=== PATIENT | female | born 1985 | race Caucasian/White ===

== ENCOUNTER → 2018-01-22 16:24 | Outpatient (CLI) | payer SELFPAY ==
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
== END ==
PROVIDERS: Visit Provider Physician Assistant
DX: J18.9 Pneumonia, unspecified organism (principal); R50.9 Fever, unspecified; R05 Cough; R06.09 Other forms of dyspnea
CPT/HCPCS: 71046

== ENCOUNTER → 2020-07-24 16:39 | Outpatient (CLI) | payer OTHER, SELFPAY | PROVIDERS: PCP Family Medicine; Referring Provider Registered Nurse; Visit Provider Registered Nurse | DX: N76.0 Acute vaginitis (principal) | CPT/HCPCS: 87210 ==

== ENCOUNTER → 2021-01-29 12:21 | Outpatient (CLI) | payer OTHER, SELFPAY ==
[2021-01-29 16:49] LABS: Urine N gonorrhoeae NOT DETECTED
[2021-01-29 17:20] LABS: Urine Chlamydia NOT DETECTED
== END ==
PROVIDERS: PCP Family Medicine; Referring Provider Nurse Practitioner Family; Visit Provider Nurse Practitioner Family
DX: N89.8 Other specified noninflammatory disorders of vagina (principal)
CPT/HCPCS: 87210; 87491; 87591

== ENCOUNTER → 2022-01-20 16:01 | Outpatient (CLI) | payer OTHER, SELFPAY | PROVIDERS: PCP Family Medicine; Visit Provider Student in an Organized Health Care Education/Training Program | DX: N89.8 Other specified noninflammatory disorders of vagina (principal) | CPT/HCPCS: 87086; 87210 ==

== ENCOUNTER 2023-03-25 14:26 | Emergency (ER) | payer OTHER, SELFPAY ==
[2023-03-25 14:29] VITALS: BP 119/57; PULSE 100; RESP 16; TEMP 36.6; O2SAT 97; BMI 25.8
--- NOTE | 2023-03-25 14:38 | DI.RAD.S_ITS ---
PROCEDURE: XR CHEST 1V INDICATIONS: R rib pain/fall TECHNIQUE: One view of the chest was acquired. COMPARISON: [facility], CR, XR CHEST 2V, 01/22/2018, 16:10. FINDINGS: Surgical changes and devices: None. Lungs and pleura: Lungs are clear. No pleural effusions or pneumothorax. Mediastinum: Mediastinal contours appear normal. Heart size is normal. Bones and chest wall: No suspicious bony lesions. Overlying soft tissues appear unremarkable. IMPRESSION: No acute cardiopulmonary abnormality is seen. No rib fracture or pneumothorax found. Dictated by: Chadwick Miranda M.D. on 03/25/2023 at 15:38 Approved by: Chadwick Miranda M.D. on 03/25/2023 at 15:38
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
[2023-03-25 16:08] VITALS: BP 131/57; PULSE 87; RESP 14; O2SAT 95
== END 2023-03-25 16:08 | disposition home or self-care (01) ==
PROVIDERS: Emergency Provider Emergency Medicine; PCP Family Medicine
DX: R07.81 Pleurodynia (principal)
CPT/HCPCS: 71045; 99281; 99282

== ENCOUNTER → 2023-05-02 16:53 | Outpatient (CLI) | payer OTHER, SELFPAY ==
--- NOTE | 2023-05-02 16:55 | DI.US.S_ITS ---
PROCEDURE: US OB <= 14 WEEKS FETUS INDICATIONS: Dating and viability, unclear dates OUTSIDE/PRIOR DATING DATA: Last menstrual period (LMP): January 25, 2023. LMP-based estimated date of delivery (CARMEN): November 01, 2023. First dating scan (date and location): May 02, 2023. Estimated date of delivery (CARMEN) from first dating scan: November 01, 2023. TECHNIQUE: Real-time scanning was performed of the fetus and maternal pelvic organs, with image documentation. COMPARISON: None. FINDINGS: Embryo: Single living intrauterine gestation is identified measuring approximately 13 weeks and 6 days. Biparietal diameter: 2.4 cm, 14 weeks and 1 day Head circumference: 9.1 cm, 14 weeks and 1 day new line abdominal circumference: 6.9 cm, 13 weeks and 4 days Femur length: 1.1 cm, 13 weeks and 2 days Heart rate: 153 Maternal organs: Ovaries appear unremarkable. IMPRESSION: Single living intrauterine gestation with estimated sonographic gestational age of approximately 13 weeks and 6 days with estimated dated delivery of approximately November 01, 2023. We strive to produce accurate, complete, and clear reports of imaging services. To assist us in improving patient care, this report was composed using standard report templates and voice recognition software. Therefore, it may contain abnormal punctuation, insertions and/or omissions. Occasional wrong-word or sound-alike substitutions may occur. Though we review the report and make efforts to correct it, we do recommend that the report be read carefully in proper context to recognize any text inaccuracies. Dictated by: Jr Browne M.D. on 05/02/2023 at 21:01 Approved by: Jr Browne M.D. on 05/02/2023 at 21:04
== END ==
PROVIDERS: PCP Family Medicine; Referring Provider Family Medicine; Visit Provider Family Medicine
DX: Z34.81 Encounter for supervision of other normal pregnancy, first trimester (principal); Z3A.13 13 weeks gestation of pregnancy
CPT/HCPCS: 76801

== ENCOUNTER → 2023-05-09 14:30 | Outpatient (CLI) | payer OTHER, SELFPAY ==
[2023-05-09 15:16] LABS: Add Manual Diff / Slide Review NO; Basophils Absolute Auto 100 /uL (0-100); Basophils Percent Auto 0.8 % (0-2); Eosinophils Absolute Auto 100 /uL (0-450); Eosinophils Percent Auto 0.7 % (2-4); Hematocrit 39.1 % (36-46); Hemoglobin 13.5 g/dL (12.0-16.0); Lymphocytes Absolute Auto 2000 /uL (1100-4500); Lymphocytes Percent Auto 16.2 % (25-40); Mean Corpuscular HGB Conc 34.7 % (30-36); Mean Corpuscular Hemoglobin 30.9 PG (26-34); Mean Corpuscular Volume 89.1 fL (80-100); Monocytes Absolute Auto 500 /uL (0-900); Monocytes Percent Auto 3.9 % (3-14); Neutrophils Absolute Auto 9600 /uL (1500-7000); Neutrophils Percent Auto 78.4 % (50-75); Platelet Count 217 X10^3/uL (150-400); Red Blood Cell Count 4.38 X10^6/uL (4.0-5.2); White Blood Cell Count 12.2 X10^3/uL (4.5-11.0)
[2023-05-09 15:28] LABS: Appearance Urine UA CLEAR; Bilirubin Urine UA NEGATIVE (NEGATIVE); Color Urine UA YELLOW; Glucose Urine UA NEGATIVE (Negative); Ketones Urine UA TRACE (NEGATIVE); Leukocyte Esterase Urine UA TRACE (NEGATIVE); Nitrite Urine UA NEGATIVE (Negative); Occult Blood Urine UA NEGATIVE (Negative); Protein Urine UA NEGATIVE (Negative); Specific Gravity Urine UA >=1.030 (1.000-1.035)
[2023-05-09 15:34] LABS: Urine Volume 10mL (spun)
[2023-05-09 15:39] LABS: Alanine Aminotransferase 16 IU/L (<35); Albumin 4.5 g/dL (3.5-5.0); Albumin Globulin Ratio 1.3 (1.0-2.8); Alkaline Phosphatase 49 U/L (38-126); Aspartate Aminotransferase 21 IU/L (14-36); BUN Creatinine Ratio 14.3 (6-22); Bacteria Urine Moderate (10-30); Bilirubin Total 0.6 mg/dL (0.2-1.3); Blood Urea Nitrogen 8 mg/dL (7-17); Calcium 9.1 mg/dL (8.4-10.2); Carbon Dioxide 23 mmol/L (22-32); Chloride 105 mmol/L (98-107); Culture Indicated Urine Cult Not Indicated; Estimated Glomerular Filt Rate > 60 mL/min (>60); Globulin 3.4 g/dL (1.7-4.1); Glucose 128 mg/dL (70-100); HEMOLYSIS < 15 (0-50); Mucus Urine 3+ (Negative); Potassium 3.9 mmol/L (3.4-5.1); RBC Urine None Seen (0-5/HPF); Sodium 136 mmol/L (137-145); Squamous Epithelial Cell Urine 5-10 /HPF (0-5/HPF); Total Protein 7.9 g/dL (6.3-8.2); WBC Urine 1-5/HPF (0-5/HPF)
[2023-05-09 15:54] LABS: Creatinine Urine Random 244.8 mg/dL
[2023-05-09 15:56] LABS: Protein (Total) Urine Random < 5 mg/dL (0-12); Protein Creatinine Ratio Urine 0.02 GRAM/24H
[2023-05-09 16:54] LABS: Urine N gonorrhoeae NOT DETECTED
[2023-05-09 16:57] LABS: Urine Chlamydia NOT DETECTED
[2023-05-09 17:01] LABS: Hepatitis B Surface Antigen NEGATIVE s/c (NEGATIVE)
[2023-05-09 17:10] LABS: HIV 1 & 2 Ab/Ag 4th Gen Combo NEGATIVE (NEGATIVE); Hep C Virus Ab w/Reflex Quant NEGATIVE s/c (NEGATIVE)
[2023-05-10 05:49] LABS: RPR Screen Non Reactive (Non Reactive)
[2023-05-10 09:41] LABS: Miscellaneous to LabCorp NATERA
[2023-05-10 11:11] LABS: Varicella IgG Antibody >4000 index (Immune >165)
== END ==
PROVIDERS: PCP Family Medicine; Referring Provider Family Medicine; Visit Provider Family Medicine
DX: Z34.01 Encounter for supervision of normal first pregnancy, first trimester (principal)
CPT/HCPCS: 36415; 80053; 80055; 81003; 81015; 82570; 84156; 86787; 86803; 86850; 86900; 86901; 87086; 87389; 87491; 87591

== ENCOUNTER → 2023-06-30 10:02 | Outpatient (CLI) | payer OTHER, SELFPAY ==
[2023-06-30 16:19] LABS: Urine N gonorrhoeae NOT DETECTED
[2023-06-30 18:18] LABS: Urine Chlamydia NOT DETECTED
== END ==
PROVIDERS: PCP Family Medicine; Visit Provider Family Medicine
DX: O26.899 Other specified pregnancy related conditions, unspecified trimester (principal); N89.8 Other specified noninflammatory disorders of vagina
CPT/HCPCS: 87210; 87491; 87591

== ENCOUNTER → 2023-06-30 14:42 | Outpatient (CLI) | payer OTHER, SELFPAY ==
--- NOTE | 2023-06-30 14:43 | DI.US.S_ITS ---
PROCEDURE: US OB >= 14 WEEKS FETUS INDICATIONS: Eval and Treat OUTSIDE/PRIOR DATING DATA: Last menstrual period (LMP): 01/25/2023. LMP-based estimated date of delivery (CARMEN): 11/01/2023. First dating scan (date and location): 05/02/2023. Estimated date of delivery (CARMEN) from first dating scan: 11/01/2023. The calculations are made using the clinical CARMEN of 11/01/2023. TECHNIQUE: Real-time scanning was performed of the fetus, with image documentation and biometric measurements. Endovaginal scanning: Not performed COMPARISON: [facility], , OB <= 14 WEEKS FETUS, 05/02/2023, 17:17. FINDINGS: General: A single living intrauterine gestation is present. Presentation: Vertex. Placenta: Placental position is posterior, without previa. Amniotic fluid index: 12.5 cm, normal range is 5-24 cm. Single deepest vertical pocket is 4.4 cm. heart rate: 150 beats per minute. Maternal cervical canal: 4.8 cm long. Normal lower limit is 2.5 cm. biometrics: Biparietal diameter: 5.2 cm, 21 weeks 5 days. 27th percentile. Head circumference: 19.6 cm, 21 weeks 5 days. 19th percentile. Abdominal circumference: 17.0 cm, 22 weeks 0 days. 32 percentile. Femur length: 3.4 cm, 20 weeks 6 days. 5th percentile. Clinically estimated gestational age: 22 weeks 2 days Composite gestational age from present scan: 21 weeks 4 days Estimated weight and percentile: 428 g, 12th percentile Anatomic survey: Neuro: Ventricles are non-dilated at less than 10 mm. Cisterna magna is normal at 3-11 mm. Cerebellum is normal in size and morphology. Nuchal skin fold: Normal at less than 6 mm between 14-21 weeks gestational age. Face: Nose and lips, facial profile are normal. Spine: No evidence for spina bifida. Heart: 4-chambered heart is present, with normal ventricular outflow tracts. Diaphragm: Diaphragm is intact. Stomach: Left-sided stomach is present. Kidneys: No hydronephrosis. Normal is less than 5 mm in 2nd trimester, less than 7 mm in 3rd trimester. Cord: 3-vessel cord has orthotopic insertion. Bladder: Normal in size. Extremities: All 4 extremities identified. IMPRESSION: 1. Jewell living intrauterine at 21 weeks 4 days based on today's ultrasound. 12 percentile for weight. Femur length is in the 5th percentile. Consider follow-up OB ultrasound to evaluate for intrauterine growth restriction. 2. Normal placenta and amniotic fluid. 3. Normal and complete anatomic survey. We strive to produce accurate, complete, and clear reports of imaging services. To assist us in improving patient care, this report was composed using standard report templates and voice recognition software. Therefore, it may contain abnormal punctuation, insertions and/or omissions. Occasional wrong-word or sound-alike substitutions may occur. Though we review the report and make efforts to correct it, we do recommend that the report be read carefully in proper context to recognize any text inaccuracies. Dictated by: Lucio Quinones M.D. on 06/30/2023 at 20:49 Approved by: Lucio Quinones M.D. on 06/30/2023 at 21:00
== END ==
LOC: US 14:43
PROVIDERS: PCP Family Medicine; Referring Provider Family Medicine; Visit Provider Family Medicine
DX: O26.892 Other specified pregnancy related conditions, second trimester (principal); N89.8 Other specified noninflammatory disorders of vagina; Z3A.21 21 weeks gestation of pregnancy
CPT/HCPCS: 76811; 87210; 87491; 87591

== ENCOUNTER → 2023-07-25 14:39 | Outpatient (CLI) | payer OTHER, SELFPAY ==
--- NOTE | 2023-07-25 14:40 | DI.US.S_ITS ---
PROCEDURE: US OB FOLLOW UP INDICATIONS: IUGR OUTSIDE/PRIOR DATING DATA: Last menstrual period (LMP): 01/25/2023. LMP-based estimated date of delivery (CARMEN): 11/01/2023. First dating scan (date and location): 05/02/2023. Estimated date of delivery (CARMEN) from first dating scan: 11/01/2023. The calculations are made using the clinical CARMEN of 11/01/2023. TECHNIQUE: Real-time scanning was performed of the fetus, with image documentation. Spectral and Doppler evaluation of the umbilical artery was performed. Endovaginal scanning: Not performed COMPARISON: For rosa 2023, 05/02/2023. FINDINGS: A single living intrauterine gestation is present. Presentation: Breech. Placenta: Placental position is fundal, without previa. Amniotic fluid index: 12.5 cm, normal range is 5-24 cm. Single deepest vertical pocket is 4.8 cm. heart rate: 143 beats per minute. Maternal cervical canal: 3.5 cm long. Normal lower limit is 2.5 cm. Clinically estimated gestational age: 25 weeks 6 days Estimated gestational age from initial scan: 25 weeks 2 days. Estimated weight: 816 g, 25th percentile. Umbilical artery waveform is within normal limits. The SD ratios measure 2.7 through 3.5. IMPRESSION: Single living intrauterine at 25 weeks 6 days, CARMEN of 11/01/2023. Estimated weight of 816 g, 25th percentile. Normal SD ratios. Dictated by: Philippe Medrano M.D. on 07/25/2023 at 16:41 Approved by: Philippe Medrano M.D. on 07/25/2023 at 16:43
== END ==
PROVIDERS: PCP Family Medicine; Referring Provider Family Medicine; Visit Provider Family Medicine
DX: O36.5990 Maternal care for other known or suspected poor fetal growth, unspecified trimester, not applicable or unspecified (principal); Z3A.25 25 weeks gestation of pregnancy; O32.1XX0 Maternal care for breech presentation, not applicable or unspecified
CPT/HCPCS: 76816; 76820

== ENCOUNTER 2023-08-12 16:59 | Emergency (ER) | payer OTHER, SELFPAY ==
[2023-08-12 17:03] VITALS: BP 112/74; PULSE 90; RESP 14; TEMP 36.3; O2SAT 98; BMI 28.3
--- NOTE | 2023-08-12 17:30 | DI.US.S_ITS ---
PROCEDURE: US PERIPH VENOUS LOW EXTREM LT INDICATIONS: varicose vein TECHNIQUE: Real-time imaging, as well as color and pulse Doppler interrogation, were performed of the lower extremity deep veins from the inguinal ligament to the popliteal fossa, with documentation of the visualized calf veins. COMPARISON: None. FINDINGS: The common femoral, femoral, popliteal, and the visualized calf veins are normally compressible, and free of intraluminal thrombus. Color and pulse Doppler demonstrate normal phasic intraluminal flow. There is normal augmentation response to distal compression maneuver. There are intraluminal filling defects within superficial great saphenous vein branches in mid thigh with absence of flow and surrounding soft tissue edema. IMPRESSION: 1. No evidence of DVT in visualized left lower extremity veins. 2. Suggestion of superficial thrombophlebitis involving branches of great saphenous vein in mid thigh. Dictated by: Ken Delcid M.D. on 08/12/2023 at 18:20 Approved by: Ken Delcid M.D. on 08/12/2023 at 18:22
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
[2023-08-12 20:06] VITALS: BP 108/56; PULSE 70; RESP 16; TEMP 36.8; O2SAT 99
== END 2023-08-12 20:08 | disposition home or self-care (01) ==
PROVIDERS: Emergency Provider Emergency Medicine; PCP Family Medicine
DX: O22.23 Superficial thrombophlebitis in pregnancy, third trimester (principal); I80.02 Phlebitis and thrombophlebitis of superficial vessels of left lower extremity; Z3A.28 28 weeks gestation of pregnancy
CPT/HCPCS: 93971; 99281; 99282

== ENCOUNTER → 2023-08-30 16:40 | Outpatient (CLI) | payer OTHER, SELFPAY ==
--- NOTE | 2023-08-30 16:42 | DI.US.S_ITS ---
PROCEDURE: US PERIP VENOUS LOW EXTREM LT INDICATIONS: lf leg clot TECHNIQUE: Real-time imaging, as well as color and pulse Doppler interrogation, were performed of the lower extremity deep veins from the inguinal ligament to the popliteal fossa, with documentation of the visualized calf veins. COMPARISON: [facility], , [facility] VENOUS LOW EXTREM LT, 08/12/2023, 17:43. FINDINGS: The common femoral, femoral, popliteal, and the visualized calf veins are normally compressible, and free of intraluminal thrombus. Color and pulse Doppler demonstrate normal phasic intraluminal flow. There is normal augmentation response to distal compression maneuver. Thrombus is visualized within the midportion of the greater saphenous vein. The distance from the saphenofemoral junction to the thrombus is 20.5 cm. IMPRESSION: 1. No findings of lower extremity deep venous thrombosis. 2. Thrombus within the midportion of the greater saphenous vein as above. Dictated by: Maureen Romo M.D. on 08/31/2023 at 10:08 Approved by: Maureen Romo M.D. on 08/31/2023 at 10:10
== END ==
PROVIDERS: PCP Family Medicine; Referring Provider Family Medicine; Visit Provider Family Medicine
DX: O22.20 Superficial thrombophlebitis in pregnancy, unspecified trimester (principal); I82.812 Embolism and thrombosis of superficial veins of left lower extremity
CPT/HCPCS: 93971

== ENCOUNTER → 2023-09-03 09:27 | Outpatient (CLI) | payer OTHER, SELFPAY ==
[2023-09-03 12:25] LABS: GTT (PREG) 1 Hour PP 50gm Dose 120 mg/dL (76-139)
== END ==
PROVIDERS: PCP Family Medicine; Referring Provider Family Medicine; Visit Provider Family Medicine
DX: O26.899 Other specified pregnancy related conditions, unspecified trimester (principal); N89.8 Other specified noninflammatory disorders of vagina
CPT/HCPCS: 82950

== ENCOUNTER → 2023-10-05 16:06 | Outpatient (CLI) | payer OTHER, MEDICAID, SELFPAY ==
[2023-10-06 15:30] LABS: Strep Grp B PCR NEG for Grp B Strep
== END ==
PROVIDERS: PCP Family Medicine; Visit Provider Family Medicine
DX: O23.599 Infection of other part of genital tract in pregnancy, unspecified trimester (principal); B96.89 Other specified bacterial agents as the cause of diseases classified elsewhere
CPT/HCPCS: 87653

== ENCOUNTER 2023-11-08 07:21 | Inpatient (IN) | payer OTHER, MEDICAID, SELFPAY ==
[2023-11-08 08:43] VITALS: BP 114/61
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
[2023-11-08 09:05] LABS: Add Manual Diff / Slide Review NO; Basophils Absolute Auto 0 /uL (0-100); Basophils Percent Auto 0.4 % (0-2); Eosinophils Absolute Auto 200 /uL (0-450); Eosinophils Percent Auto 1.8 % (2-4); Hematocrit 36.1 % (36-46); Hemoglobin 12.1 g/dL (12.0-16.0); Lymphocytes Absolute Auto 2700 /uL (1100-4500); Lymphocytes Percent Auto 24.3 % (25-40); Mean Corpuscular HGB Conc 33.5 % (30-36); Mean Corpuscular Hemoglobin 31.2 PG (26-34); Mean Corpuscular Volume 93.1 fL (80-100); Monocytes Absolute Auto 800 /uL (0-900); Monocytes Percent Auto 6.9 % (3-14); Neutrophils Absolute Auto 7400 /uL (1500-7000); Neutrophils Percent Auto 66.6 % (50-75); Platelet Count 207 X10^3/uL (150-400); Red Blood Cell Count 3.88 X10^6/uL (4.0-5.2); Red Cell Distribution Width 13.8 % (11.6-14.8)
[2023-11-08] MEDS: miSOPROStoL 25 MCG TABLET PO ×3 (09:18→17:40)
[2023-11-08 16:43] VITALS: BP 105/59; TEMP 2.2; TEMP 35.9
[2023-11-09] MEDS: miSOPROStoL 25 MCG TABLET PO (00:37)
--- NOTE | 2023-11-09 07:33 | PM.OBPNLAB ---
Date/Time Date Patient Seen: 11/09/23 Time Patient Seen: 06:40 Pain Control Comments: requesting epidural, nitrous not effective Pelvic Exam Dilation (cm): 2 Effacement (%): 70 station: -1 Amniotic membrane status: Intact Contractions Contractions on admission: regular Monitor mode: External Contraction frequency (min): 2 Contraction duration (min): 1 Contraction pattern: Regular Contraction phase: Contraction Contraction intensity: Strong/Firm Status status: Category l (with occasional periods of minimal variability but accels present and no decels ) Heart Rate Baseline: 120 Monitor Accelerations: Present Monitor Decelerations: Absent Monitor Variability: Moderate Assessment and Plan Assessment: induction ongoing Plan: continuous present management Comments: 38 yo presenting at 41w1d for mIOL for postdates . has been uncomplicated aside from post-dates status. Cervical checks very painful and head low with cervix difficult to feel. Now getting much more uncomfortable and requesting epidural. Will repeat exam after comfortable and if progressing will consider transition to Pitocin ##mIOL ## postdates - s/p cytotex 25mcg x2 and 50mcg x2 - intermittent monitoring - GBS negative, no ppx needed - Cephalic by bedside US - Pt requesting epidural, will give Fentanyl x1 while awaiting epidural
--- NOTE | 2023-11-09 07:53 | PM.AN.REGBLK ---
Regional Block Pre-procedure Procedure: Continuous Lumbar Epidural for L&D Attending OB provider: Alexa Cardoza PMH/ROS narrative: ROS negative with the exception of GERD with this PSH/Anesthesia history narrative: None Exam narrative: Mall II, dentition good ASA Class: II Labs: Hct 36.1 % (36-46) 11/08/23 07:46 Plt Count 207 X10^3/uL (150-400) 11/08/23 07:46 Medications: Current Medications Generic Name Dose Route Start Last Admin Trade Name Freq PRN Reason Stop Dose Admin Acetaminophen 650 mg 11/08/23 08:39 Acetaminophen 325 Mg Tablet PO Q4HR PRN Fever/Mild Pain (1-3) Calcium Carbonate 500 mg 11/08/23 08:39 Calcium Carbonate 500 Mg Tab PO Q2H PRN Dyspepsia Fentanyl 50 mcg 11/09/23 06:59 Fentanyl 100 Mcg/2 Ml Inj IV Q1H PRN Pain, Moderate (4-6) Hydroxyzine HCl 25 mg 11/08/23 08:42 Hydroxyzine Hcl 25 Mg Tablet PO Q4H PRN Nausea, insomnia, anxiety Lactated Ringer's 1,000 mls @ 100 mls/hr 11/08/23 08:45 Lactated Ringers IV CONT THOMPSON Oxytocin/Lactated Ringer's 30 unit in 500 mls @ 1 mls/hr 11/08/23 08:45 Oxytocin Premix IV TITRATE THOMPSON Protocol 1 MILLIUNIT/MIN Misoprostol 25 mcg 11/08/23 08:45 11/09/23 00:37 Misoprostol 25 Mcg Tablet PO 25 mcg Q4H THOMPSON Administration Morphine Sulfate 2 mg 11/08/23 08:39 Morphine 2 Mg/Ml Inj IV Q4HR PRN Pain, Moderate (4-6) Ondansetron HCl 4 mg 11/08/23 08:43 Ondansetron 4 Mg/2 Ml Inj IV Q4HR PRN Nausea And Vomiting Zolpidem Tartrate 5 mg 11/08/23 08:39 Zolpidem 5 Mg Tablet PO BEDTIME PRN Sleep Allergies: Allergies Allergy/AdvReac Type Severity Reaction Status Date / Time No Known Drug Allergies Allergy Verified 11/02/23 15:42 Procedure Insertion date: 11/09/23 Insertion time: 07:35 Prep/Local: 1% lidocaine (chlorhexidine skin prep, dry x 3 min) Interspace: L4-5 Patient position: sitting Needle: 17 gauge Tuohy Loss of resistance with: saline DONTAE at (cm): 7 Catheter placed at SKIN (cm): 13 Catheter in SPACE (cm): 6 Sensory level: T12 Insertion: No CSF, No Blood, Yes Paresthesia with insertion, No Paresthesia with injection and No Test dose reaction Initial Medications TEST DOSE time: 07:36 BOLUS DOSE time: 07:47 BOLUS DOSE (mL): 5 BOLUS DOSE med: 0.125% bupivacaine with fentanyl 10 mcg/mL Infusion INFUSION: 0.125% bupivacaine and with fentanyl 2 mcg/mL Initial rate (mL/hr): 12 Subsequent interventions: 0830: Patient states her buttocks are numb and both feet are tingly but she is still feeling contractions in upper abdomen. Patient's HOB lowered to 20 degrees, 10cc 2% lidocaine given via epidural. 1006: Patient is completely dilated, membranes ruptured, baby down. getting ready to start pushing, uncomfortable. Patient positioned sitting up, bolused epidural with 10cc 2% lidocaine. Post-procedure Anesthesia date START: 11/09/23 Anesthesia time START: 07:30 Anesthesia date END: 11/09/23 Anesthesia time END: 10:42 Post-procedure Anesthesia Assessment: Yes CV function: HR/BP stable, Yes Resp function: RR/sat/airway adequate, Yes Post-op hydration adequate, Yes Pain control adequate, Yes Nausea & vomiting absent, Yes Temperature > 36 C, Yes Mental status appropriate and Yes Anesthesia complications
[2023-11-09] MEDS: ONDANSETRON 4 MG/2 ML INJ IV (09:20)
--- NOTE | 2023-11-09 11:17 | PM.OBPRVD ---
Labor & Delivery Delivery date: 11/09/23 Intrapartal Events: None Cervical ripening method: per misoprostal protocol Delivery monitor: external FHT Route of delivery: L&D Laceration Description: Periurethral - 1st Degree (hemostatic, not repaired ), Perineal - 1st Degree (sulcal tear, repaired, 3-0 vicryl) and Labial (R labial, hemostatic, not repaired ) Delivery repair: vicryl Estimated blood loss (mL): 150 Anesthesia Type: Epidural Narrative: PROCEDURE: 38 yo at 41w0d presented for mIOL for post-dates and was admitted to Labor and Delivery. She was started on PO cytotec for induction agent. She received 2 doses of 25mcg and 2 doses of 50mcg. SROM occured at 9:55 with clear fluid. Pain was controlled with epidural. She did require rebolus x2 due to insufficient pain control. The patient progressed through the 2nd stage and delivered a viable male infant out of Direct OA with APGARs 9/9 at 10:42 via . The cord was cut and clamped after a 60 second delay. The placenta delivered with gentle cord traction, and appeared complete. A true knot was noted in the umbilical cord. The perineum and vagina were inspected with a shallow superficial laceration on the right labia, another shallow periurethral, both of which were hemostatic and not repaired. A sulcal tear was noted which did require repair with 3-0 Vicryl in the usual fashion. Needle and sponge counts were correct.? The vagina was inspected and no items were left in situ. PREPROCEDURE DIAGNOSIS: Intrauterine at 41w1d AMA on ASA GBS neg RH positive, Ab negative POSTPROCEDURE DIAGNOSIS: Intrauterine at 41w1d, delivered Same as preprocedure Plan for aftercare: Routine care
[2023-11-09] MEDS: WITCH HAZEL/GLYCERIN PADS 1 EACH TOP (13:30)
[2023-11-09] MEDS: ACETAMINOPHEN 325 MG TABLET 650 MG PO ×2 (13:31→21:31)
[2023-11-09] MEDS: IBUPROFEN 600 MG TABLET PO ×2 (13:31→21:30)
[2023-11-09] MEDS: DERMOPLAST SPRAY 20% 60 ML 1 SPRAY TOP (13:31)
[2023-11-09] MEDS: OXYCODONE IR 5 MG TABLET PO (15:54)
[2023-11-10] MEDS: ACETAMINOPHEN 325 MG TABLET 650 MG PO ×2 (02:43→08:58)
[2023-11-10] MEDS: IBUPROFEN 600 MG TABLET PO ×2 (02:44→08:59)
[2023-11-10] MEDS: PRENATAL VIT,CALC/IRON/FOLIC 1 TABLET 1 TAB PO (08:59)
--- NOTE | 2023-11-10 09:40 | P.DS_ITS ---
Discharge Providers Provider Date of admission: 11/08/23 07:21 Discharge Date: 11/10/23 Primary care physician: Vivek Menchaca DO Consults: 11/10/23 11:14 Consult to Slide Attendant Routine Comment: Discharge provider: Alexa Cardoza MD Summary Hospital Course Date Patient Seen: 11/10/23 Time Patient Seen: 09:20 Hospital Course: 38 yo at 41w0d presented for mIOL for post-dates and was admitted to Labor and Delivery. She was started on PO cytotec for induction agent. She received 2 doses of 25mcg and 2 doses of 50mcg. SROM occured at 9:55 with clear fluid. Pain was controlled with epidural. She did require rebolus x2 due to insufficient pain control. The patient progressed through the 2nd stage and delivered a viable male infant out of Direct OA with APGARs 9/9 at 10:42 via . The cord was cut and clamped after a 60 second delay. The placenta delivered with gentle cord traction, and appeared complete. A true knot was noted in the umbilical cord. The perineum and vagina were inspected with a shallow superficial laceration on the right labia, another shallow periurethral, both of which were hemostatic and not repaired. A sulcal tear was noted which did require repair with 3-0 Vicryl in the usual fashion. PP course was uncomplciated. She is breast feeding well and godfrey nis well controlled with oral medications. She has had typical vaginal bleeding that is slowing Peripartum Data Delivery Method: Natural Vaginal Laceration Description: Periurethral - 1st Degree, Vaginal - 1st Degree and Labial complications: none Status at Discharge Cognitive/behavioral status at discharge: oriented Overall status at discharge: patient is back to baseline Time Spent with Patient Time attestation: Total time spent providing and/or coordinating discharge services: Time spent: Less than 30 minutes Objective Labs 11/08/23 07:46 Exam Narrative Exam Narrative: GEN: Healthy appearing, well-developed, NAD. PSYCH: Good Judgment. AOx3. Normal memory, mood, and affect HEENT: -Head: NC/AT -Eyes: No discharge or redness CV: warm and well perfused LUNGS: breathing comfortably on RA ABD: non-tender, fundus firm below the umbilicus SKIN: Warm, well perfused. No skin rashes or abnormal lesions MSK: No deformities NEURO: Ambulating with no limitations. No focal deficits Discharge Plan Discharge Plan Patient Disposition: Home Discharge orders & Medications Prescriptions: Continued vit-ferrous sulfat-FA 27 mg iron- 0.8 mg tablet 1 tab PO DAILY Discontinued aspirin [Adult Aspirin Regimen] 81 mg tablet,delayed release (DR/EC) 81 mg PO DAILY Follow up/Referrals: Alexa Cardoza MD [Physician] - (6 week Appt w/ Dr. Cardoza: December 20 @ 2:30pm) Visit Report/Discharge Packet Stand Alone Forms: Discharge: Care, Patient Portal/API, Stroke Signs & Symptoms Discharge Data Primary Care Provider: Vivek Menchaca Discharges patient from system. Discharge Date/Time: 11/10/23 11:22
[2023-11-10 10:28] VITALS: BP 106/69; PULSE 74; RESP 15; TEMP 36.9
== END 2023-11-10 11:22 | disposition home or self-care (01) | DRG 807 ==
PROVIDERS: Admitting Provider Family Medicine; PCP Family Medicine; Referring Provider Family Medicine; Visit Provider Family Medicine
DX: O48.0 Post-term pregnancy (principal); Z37.0 Single live birth; Z3A.41 41 weeks gestation of pregnancy; O76 Abnormality in fetal heart rate and rhythm complicating labor and delivery; O70.0 First degree perineal laceration during delivery
CPT/HCPCS: 36415; 59050; 59200; 59400; 76815; 85025; 86850; 86900; 86901; G0379; J2405

== ENCOUNTER → 2023-12-08 15:12 | Outpatient (CLI) | payer OTHER, MEDICAID, SELFPAY ==
--- NOTE | 2023-12-08 15:14 | DI.US.S_ITS ---
PROCEDURE: US PERIPH VENOUS LOW EXTREM LT INDICATIONS: rule out DVT, assess for growth of SVT, compare to previous TECHNIQUE: Real-time imaging, as well as color and pulse Doppler interrogation, were performed of the lower extremity deep veins from the inguinal ligament to the popliteal fossa, with documentation of the visualized calf veins. Thirty-one images COMPARISON: [facility], , [facility] VENOUS LOW EXTREM LT, 08/30/2023, 16:53. FINDINGS: Again noted are the findings of superficial vein thrombosis with nonocclusive thrombus in the mid anterior thigh, suspected anterior branch of greater saphenous vein. Allowing for differences in technique there does appear to be increase in size of the thrombus with some thrombus in smaller adjacent anterior superficial greater saphenous vein branches. There is no ultrasound evidence of deep vein thrombosis. The common femoral, femoral, popliteal, and the visualized calf veins are normally compressible, and free of intraluminal thrombus. Color and pulse Doppler demonstrate normal phasic intraluminal flow. There is normal augmentation response to distal compression maneuver. IMPRESSION: Mildly progressed superficial vein thrombosis presumed anterior left thigh greater saphenous vein as discussed above. No ultrasound evidence of deep vein thrombosis. Dictated by: Qamar Meza M.D. on 12/08/2023 at 17:05 Approved by: Qamar Meza M.D. on 12/08/2023 at 17:12
== END ==
PROVIDERS: PCP Family Medicine; Referring Provider Family Medicine; Visit Provider Family Medicine
DX: I82.812 Embolism and thrombosis of superficial veins of left lower extremity (principal)
CPT/HCPCS: 93971

== ENCOUNTER → 2023-12-15 12:56 | Outpatient (CLI) | payer OTHER, MEDICAID, SELFPAY ==
--- NOTE | 2023-12-15 12:57 | DI.US.S_ITS ---
PROCEDURE: PERIP VENOUS LOW EXTREM LT INDICATIONS: f/up anterior accessory GSV superficial vein thrombosis TECHNIQUE: Real-time imaging, as well as color and pulse Doppler interrogation, were performed of the lower extremity deep veins from the inguinal ligament to the popliteal fossa, with documentation of the visualized calf veins. COMPARISON: [facility], [facility] VENOUS LOW EXTREM LT, 08/30/2023, 16:53. Right or ECA-sided [facility], [facility] VENOUS LOW EXTREM L. T, 08/12/2023, 17:43[facility], PERIP VENOUS LOW EXTREM LT, 12/08/2023, 16:16. FINDINGS: The common femoral, femoral, popliteal, and the visualized calf veins are normally compressible, and free of intraluminal thrombus. Color and pulse Doppler demonstrate normal phasic intraluminal flow. There is normal augmentation response to distal compression maneuver. The left greater saphenous vein accessory is patent. IMPRESSION: No findings of lower extremity deep venous thrombosis. No superficial venous thrombosis is now seen on these images. Dictated by: Robert Melo M.D. on 12/15/2023 at 12:47 Approved by: Robert Melo M.D. on 12/15/2023 at 12:48
== END ==
PROVIDERS: PCP Family Medicine; Referring Provider Family Medicine; Visit Provider Family Medicine
DX: I80.9 Phlebitis and thrombophlebitis of unspecified site (principal)
CPT/HCPCS: 93971

== ENCOUNTER 2024-03-09 09:27 | Day surgery (SDC) | payer OTHER, SELFPAY ==
[2024-03-02 11:17] VITALS: BMI 26.9
[2024-03-09] VITALS (8 sets, daily range): BP systolic 85–137; BP diastolic 52–73; PULSE 56–83; RESP 10–20; TEMP 36.2–37.2; O2SAT 95–98; BMI 26.6
--- NOTE | 2024-03-09 | PATH_ITS ---
[facility] Accession Number: [id number] No. of containers..01 Tissue . 01 Material submitted: . fallopian tube - BILATERAL FALLOPIAN TUBES . 01 Diagnosis: BILATERAL FALLOPIAN TUBES, TUBAL LIGATION: Longer described fallopian tube, complete cross-sections; negative for significant atypia. [place] described fallopian tube, complete cross-sections and scattered benign paratubal cysts (up to 11 mm); negative for significant atypia. [facility] 03/13/2024 1020 Local . 01 Electronically signed: . Ada Fajardo MD, Pathologist NPI- [id number] . 01 Gross description: . Received in formalin with two identifiers and bilateral fallopian tubes, are two unoriented fimbriated fallopian tubes (6.9 x 0.7 cm and 5.4 x 0.9 cm). Both tubes have violaceous, smooth serosa with cystic structures up to 1.1 cm in greatest dimension filled with clear serous fluid. The lumen are stellate and unremarkable. Heel Attacher sections to include one-half of bisected fimbriae and cross-sections are submitted as follows: A1: Longer fallopian tube. A2: [place] fallopian tube. ([id number]) /[facility] 03/10/2024 2319 Local . 01 Pathologist provided ICD-10: Z30.2 . 01 CPT . 867100 Specimen Comment: A courtesy copy of this report has been sent to [phone] Performed at: [address] [id number] MD Jc Calvo MD Phone: [phone]
--- NOTE | 2024-03-09 09:26 | PM.PREOP ---
Pre-operative Note COVID-19 COVID-19 status: Not tested Interval Note History & Physical reviewed/Exam performed by Physician: Yes Changes to H&P: No
[2024-03-09] MEDS: LACTATED RINGERS 1,000 ML 42 ML IV (10:06)
--- NOTE | 2024-03-09 11:13 | SUR.OPER ---
Lithotomy on padded OR bed, head on pillow, arms secured on padded arm boards at <90 degrees abduction. Legs secured in padded yellow fins stirrups.
[2024-03-09] MEDS: BUPIVACAINE 0.5% W/ EPI (PF) 30 ML VIAL INJ (11:29)
--- NOTE | 2024-03-09 11:53 | P.OP_ITS ---
Operative Date/Time/Diagnoses Date of procedure: 03/09/24 Time of procedure: 11:00 Pre-op diagnosis: Request for sterilization Post-op diagnosis: same Procedure & Clinicians Procedure: Procedures Operation Date: 03/09/24 11:00 Actual Procedure Side Surgeon p Laparoscopic Salpingectomy Bilateral Thanh Rodriguez MD Indications: Lexy is a 38-year-old status post vaginal on 11/09/2023 who presents for consultation regarding sterilization. Patient is aware of options for short and long-term contraception as well as the option of vasectomy. She has however desirous of permanent sterilization by laparoscopic bilateral salpingectomy. Patient counseled regarding alternatives, risks, benefits, and potential complications associated with laparoscopic bilateral salpingectomy. Patient understands that this is a procedure which will result in her permanently and irreversibly being unable to bear children without benefit of assisted reproductive technology. In addition patient understands that there is a small (1-04/999) risk of failure to prevent and should such a occur, it will most likely be ectopic in location. With full understanding of the above, patient expresses desire to move forward with sterilization. She presents today for her scheduled surgery. Surgeon: Thanh Rodriguez Anesthesia Type: General Operative Notes Findings: The uterus is normal in size and shape with the exception that there has a very small subserosal myoma on the dome of the fundus. Tubes appeared to be normal with small hydatid cysts on the distal right tube. Both ovaries appear normal. Posterior cul-de-sac is unremarkable. The remainder of the abdomen and pelvis were normal to laparoscopic visualization. Closure Type: primary Specimen(s): left tube and right tube Estimated blood loss (mL): 5 Blood products transfused: none Procedure in detail: With the patient under satisfactory general anesthesia in the modified dorsal lithotomy position, the perineum, vagina, and abdomen were prepped and draped for IUD removal and laparoscopic bilateral salpingectomy. A pre-surgical safety time-out was then taken in accordance with [facility] Main OR protocols. The umbilicus was then infiltrated with 0.5% Marcaine with epinephrine and 1 cm vertical incision was made in the inferior aspect of the umbilicus. Veress needle was used to insufflate the abdomen with carbon dioxide and once bebe ropriately insufflated, 5 mm bladeless trocar and sleeve were inserted through the incision. Proper placement of the sleeve was confirmed with laparoscopic visualization and insufflation of the abdomen continued. A 2nd and 3rd 5 mm laparoscopic port were placed in the right and left mid quadrants using a similar technique and using a 3 puncture technique, the abdomen and pelvis were visualized with the findings as noted above. The distal aspect of the left fallopian tube was then grasped with a grasping forceps and using a Power Seal device, fimbria ovarica was coagulated and divided the dissection using the Power Seal continuing across the mesosalpinx to the cornua where the base fallopian tube was coagulated and divided. The left fallopian tube was then removed through one of the ports and submitted pathologic specimen. Attention was then turned to the right adnexa with distal tube grasped with a grasping forcep. The Power Seal device was then used to coagulate fimbria ovarica and the dissection was carried across the mesosalpinx to the cornua where the fallopian tube on the right side was amputated at the cornua following coagulation proximal tube the Power Seal device. Pelvis was inspected and there were no abnormalities noted following bilateral salpingectomy. The pneumoperitoneum was then vented and the ports removed from the abdominal wall. Port incisions were then closed with 4-0 Monocryl using inverted interrupted stitches and skin glue was applied. Appropriate dressings were then applied, patient was awakened, and transferred to the PACU for a period of observation after having tolerated the procedure well. Complications: none Post-operative Condition: stable Disposition: PACU Plan for aftercare: Routine postoperative care with plans for follow-up in 2 weeks.
[2024-03-09] MEDS: OXYCODONE/ACETAMINOPHEN 5/325 TABLET 1 TAB PO ×2 (12:08→13:10)
[2024-03-09] MEDS: ONDANSETRON 4 MG/2 ML INJ IV (12:09)
[2024-03-09] MEDS: PROMETHAZINE 25 MG TABLET 12.5 MG PO (13:11)
== END 2024-03-09 13:31 | disposition home or self-care (01) ==
PROVIDERS: PCP Family Medicine; Referring Provider Obstetrics & Gynecology; Visit Provider Obstetrics & Gynecology
PROC: 0UT74ZZ Resection of Bilateral Fallopian Tubes, Percutaneous Endoscopic Approach (ICD-10-PCS; CPT 58661; principal; 2024-03-09 11:00)
DX: Z30.2 Encounter for sterilization (principal); D25.2 Subserosal leiomyoma of uterus; N83.8 Other noninflammatory disorders of ovary, fallopian tube and broad ligament
CPT/HCPCS: 58661; J1100; J1885; J2250; J2405; J2704; J3010

== ENCOUNTER → 2024-12-26 10:53 | Outpatient (CLI) | payer OTHER, SELFPAY | PROVIDERS: PCP Family Medicine; Visit Provider Family Medicine | DX: Z11.3 Encounter for screening for infections with a predominantly sexual mode of transmission (principal); N92.6 Irregular menstruation, unspecified | CPT/HCPCS: 87491; 87591 ==